=== PATIENT | male | born 1965 | race Caucasian/White ===

== ENCOUNTER 2021-01-01 14:54 | Emergency (ER) | payer MEDICARE, OTHER ==
[~2021-01-01] VITALS: Ht 172.7 cm; Wt 68.2 kg
[~2021-01-01 14:54] MED LIST: ASPIRIN 32325 MG/TAB PO; CELLCEPT 5500 MG/TAB PO; NORCO 325 MG-51 TAB PO; PREDNISONE20 MG PO; PRILOTC PO; ULTRAM 50MG TAB50 MG PO
[2021-01-01 15:13] VITALS: TEMP 97.7
[2021-01-01] MEDS ORDERED: NEURONTIN300 MG/CAP PO (16:56)
[2021-01-01 17:46] VITALS: BP 135/113; PULSE 82
== END 2021-01-01 17:46 | disposition home or self-care (01) ==
LOC: COL.ER 14:54
DX: M54.12 Radiculopathy, cervical region (principal); Z88.8 Allergy status to other drugs, medicaments and biological substances; Z79.82 Long term (current) use of aspirin; Z79.52 Long term (current) use of systemic steroids; Z94.2 Lung transplant status

== ENCOUNTER → 2021-02-15 | Outpatient (CLI) | payer MEDICARE, OTHER ==
[~2021-02-15] MED LIST changes: +NEURONTIN300 MG/CAP PO
== END ==
LOC: MHCPAIN 09:48
DX: M54.6 Pain in thoracic spine (principal); B02.29 Other postherpetic nervous system involvement; M79.2 Neuralgia and neuritis, unspecified; G89.29 Other chronic pain
CPT/HCPCS: G0463

== ENCOUNTER → 2021-04-08 | Outpatient (CLI) | payer MEDICARE, OTHER | LOC: COL.RAD 10:53 | DX: C44.92 Squamous cell carcinoma of skin, unspecified (principal); R91.8 Other nonspecific abnormal finding of lung field; M85.80 Other specified disorders of bone density and structure, unspecified site | CPT/HCPCS: Q9967 ==

== ENCOUNTER 2021-07-19 04:59 | Emergency (ER) | payer MEDICARE, OTHER ==
[2021-07-19 05:05] VITALS: TEMP 97.9
[2021-07-19 05:38] LABS: BASO % 0.2 % (0.0-2.0); EOS # 0.1 K/mm3 (0.0-0.7); EOS % 0.5 % (0-4.0); GRAN # 12.9 K/mm3 (1.4-6.5); GRAN % 78.6 % (42.2-75.2); LYMPH # 1.8 K/mm3 (1.2-3.4); LYMPH % 11.2 % (20.0-51.0); MEAN CELL VOLUME 80 fl (80.0-100.0); MEAN CORPUSCULAR HGB CONC 32 g/dl (33.0-37.0); MONO # 1.5 K/mm3 (0.1-0.6); MONO % 8.8 % (1.7-9.3); PLATELET COUNT 248 K/mm3 (130-400); RED BLOOD COUNT 3.44 M/mm3 (4.20-5.60); REDCELL DISTRIBUTION WIDTH-CV 17.7 % (11.5-14.5)
[2021-07-19 05:40] LABS: HEMATOCRIT 27.5 % (42.0-52.0); HEMOGLOBIN 8.8 g/dl (13.5-18.0); MEAN CORPUSCULAR HEMOGLOBIN 26 pg (27.0-31.0)
[2021-07-19 06:04] LABS: ALBUMIN 2.9 gm/dL (3.5-5.0); BILIRUBIN,TOTAL 0.3 mg/dL (0.2-1.2); CALCIUM 9.7 mg/dL (8.4-10.2); CREATININE, serum 1.31 mg/dL (0.72-1.25); POTASSIUM 3.7 mmol/L (3.5-4.5); TOTAL PROTEIN 7.3 gm/dL (6.2-8.1)
[2021-07-19 09:05] LABS: COLLECTION METHOD CLEAN CATCH
[2021-07-19 09:18] LABS: PH 6 (5-8); SQUAMOUS EPITHELIAL None Seen /hpf; URINE APPEARANCE Clear; URINE BACTERIA None Seen /hpf; URINE BILIRUBIN Negative (NEGATIVE); URINE BLOOD Negative (NEGATIVE); URINE COLOR Straw; URINE GLUCOSE Negative (NEGATIVE); URINE KETONE 1+ (NEGATIVE); URINE LEUKOCYTE ESTERASE Negative (NEGATIVE); URINE NITRATE Negative (NEGATIVE); URINE PROTEIN(semi-quant) Negative (NEGATIVE); URINE RBC 0-2 /hpf; URINE UROBILINOGEN Negative (NEGATIVE)
[2021-07-19 12:58] VITALS: BP 132/74; PULSE 90
== END 2021-07-19 13:19 | disposition short-term general hospital (02) ==
LOC: COL.ER 04:59
PROVIDERS: Emergency Medicine
DX: R10.31 Right lower quadrant pain (principal); R79.89 Other specified abnormal findings of blood chemistry; D72.829 Elevated white blood cell count, unspecified; Z20.822 Contact with and (suspected) exposure to COVID-19
CPT/HCPCS: J1170; J2270; J2405; J2543; J3370; J7030; J7050; Q9967